=== PATIENT | female | born 1990 | race Caucasian/White ===

== ENCOUNTER 2018-02-06 22:21 | Emergency (ER) | payer OTHER ==
[~2018-02-06] VITALS: Ht 175.3 cm; Wt 117.9 kg
[2018-02-07 00:34] LABS: HEMATOCRIT 35.5 % (36.0-46.0); HEMOGLOBIN 11.9 G/DL (11.9-15.5); MCH 28.6 PG (29.0-34.0); MCHC 33.5 G/DL (30.0-36.0); MCV 85.3 FL (83-99); PLATELET COUNT 259 K/uL (156-360); RBC DIS.WIDTH-SD 40.4 % (39-53); RED BLOOD COUNT 4.16 M/uL (3.80-5.20); WHITE BLOOD COUNT 7.8 K/uL (4.1-10.2)
[2018-02-07 00:43] LABS: CHLORIDE 107 mEq/L (99-109); POTASSIUM 3.8 mEq/L (3.7-5.4); SODIUM 138 mEq/L (136-147)
[2018-02-07 00:44] LABS: GLUCOSE 97 mg/dL (70-99)
[2018-02-07 00:48] LABS: CREATININE 0.7 mg/dL (0.6-1.3)
[2018-02-07 00:49] LABS: GFR ESTIMATE (CALCULATED) > 59 mL/min/; UREA NITROGEN (BUN) 8 mg/dL (9-23)
[2018-02-07 00:56] LABS: QUANTITATIVE HCG < 4.0 MIU/ML
[2018-02-07 03:18] VITALS: BP 125/79
== END 2018-02-07 03:19 | disposition home or self-care (01) ==
LOC: EME 22:21
PROVIDERS: Emergency Medicine Emergency Medical Services
DX: R51 Headache (principal); R20.0 Anesthesia of skin; R11.0 Nausea; F41.9 Anxiety disorder, unspecified; F90.9 Attention-deficit hyperactivity disorder, unspecified type; Z87.891 Personal history of nicotine dependence; Z88.2 Allergy status to sulfonamides
CPT/HCPCS: 70450; 80048; 84702; 85027; 99281; 99284; J0780